=== PATIENT | male | born 1980 ===

== ENCOUNTER 2018-03-02 13:23 | Emergency (ER) | payer OTHER, BC ==
[2018-03-02 13:34] VITALS: BP 151/90; PULSE 74; TEMP 98.1; O2SAT 99
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
[2018-03-02 14:26] VITALS: RESP 16
--- NOTE | 2018-03-02 15:34 | RAD ---
Date of service: 03/02/2018 HISTORY: Cough COMPARISON: No prior. TECHNIQUE: Chest PA and lateral FINDINGS: LUNGS: No active pulmonary disease. PLEURA: No significant pleural effusion identified. No pneumothorax apparent. CARDIOVASCULAR: Normal. OSSEOUS STRUCTURES: No significant abnormalities. VISUALIZED UPPER ABDOMEN: Normal. OTHER FINDINGS: None. IMPRESSION: No acute cardiopulmonary disease appreciated.
== END 2018-03-02 14:25 | disposition home or self-care (01) ==
LOC: C.ER 13:23
DX: S29.012A Strain of muscle and tendon of back wall of thorax, initial encounter (principal); V49.88XA Car occupant (driver) (passenger) injured in other specified transport accidents, initial encounter; Y92.413 State road as the place of occurrence of the external cause